=== PATIENT | female | born 1975 | race Caucasian/White ===

== ENCOUNTER 2024-10-19 06:42 | Day surgery (SDC) | payer OTHER ==
[2024-10-13 15:28] VITALS: BP 125/78
[~2024-10-19] VITALS: Ht 167.6 cm; Wt 103.0 kg
[~2024-10-19 06:42] MED LIST: ACETAMINOPHEN500 MG PO; DAILY MULTIVIT1 EAC3 PO; ESTRADIOL2 MG PO; HYDROCODON-ACE1 EA10 PO; IBUPROFEN600 MG PO; IBUPROFEN800 MG PO; LACTATED RINGER'S 1,000 ML IV SCH; MULTI VITAMIN1 EACH PO; OXYBUTYNIN CHLO15 MG PO; OXYCODON-ACETA1 EAC2 PO; PROPRANOLOL HCL20 MG PO; PROZAC20 MG PO; SENNA PLUS TAB1 EACH PO; SUMATRIPTAN SUC50 MG PO
[2024-10-19 07:00] VITALS: BP 111/72
[2024-10-19] MEDS ORDERED: BOTULINUM TOXIN TYPE A 100 UNITS VIAL IM ONE ×2 (07:00→09:15)
[2024-10-19] MEDS ORDERED: LIDOCAINE HCL 1% 5 ML SDV INJ ONE (07:00)
[2024-10-19] MEDS ORDERED: CEFAZOLIN SODIUM 2 GM/20 ML SYR IV SCH (07:00)
[2024-10-19] MEDS ORDERED: IBLOOD GLUCOSE TEST STRIP 1 EA TEST VI PRN ×2 (07:00→09:15)
--- NOTE | 2024-10-19 07:09 | NUR ---
JAGDISH WAITING WITH PT. PT COMFORTABLE.
--- NOTE | 2024-10-19 07:57 | NUR ---
up to br. returned and scds on again. iv patent
[2024-10-19] MEDS ORDERED: TRAMADOL HCL 50 MG TAB PO PRN (08:00)
[2024-10-19] MEDS ORDERED: OXYCODONE/APAP 5/325 TAB PO PRN (08:00)
[2024-10-19] MEDS ORDERED: HYDROmorphone HCL 1 MG/ML SYR IV PRN (08:00)
[2024-10-19] MEDS ORDERED: KETOROLAC TROMETHAMINE 15 MG/ML VIAL IV PRN (08:00)
[2024-10-19] MEDS ORDERED: ondansetron HCL 4 MG/2 ML VIAL IV PRN ×2 (08:00→09:15)
[2024-10-19] MEDS ORDERED: fentaNYL citrate 100 MCG/2 ML VIAL ONE (08:15)
[2024-10-19] MEDS ORDERED: propofoL 200 MG/20 ML VIAL ONE ×2 (08:15→09:56)
[2024-10-19] MEDS ORDERED: ACETAMINOPHEN 1,000 MG/100 ML VIAL ONE (08:15)
[2024-10-19] MEDS ORDERED: ondansetron HCL 4 MG/2 ML VIAL ONE (08:15)
[2024-10-19] MEDS ORDERED: LIDOCAINE HCL 2% 5 ML SDV ONE (08:15)
--- NOTE | 2024-10-19 08:56 | NUR ---
DENIES NEED TO USE BR.
[2024-10-19] MEDS ORDERED: PROCHLORPERAZINE EDISYLATE 10 MG/2 ML VIAL IV PRN (09:15)
[2024-10-19] MEDS ORDERED: fentaNYL citrate 50 MCG/ML SDV IV PRN (09:15)
[2024-10-19] MEDS ORDERED: NALOXONE HCL 0.4 MG SYR IV PRN (09:15)
[2024-10-19] MEDS ORDERED: droPERidol 5 MG/2 ML VIAL IV PRN (09:15)
[2024-10-19] MEDS ORDERED: KETOROLAC TROMETHAMINE 30 MG/ML VIAL ONE (09:16)
[2024-10-19] MEDS ORDERED: DEXAMETHASONE SOD PHOS 4 MG/ML VIAL ONE (09:45)
--- NOTE | 2024-10-19 10:39 | NUR ---
10/19/24 1039 Tenisha Parada 1026-PT ARRIVES TO PACU RESTING SEMI FOWLERS, PT NOT RESPONSIVE TO TACTILE STIMULI. VSS ON 6L VIA MASK, RR EVEN AND UNLABORED. 1030-PT RESPONSIVE TO VERBAL STIMULI BUT REMAINS ASLEEP, VSS ON 6L VIA MASK. 1035-PT AWAKENS TO VOICE, DENIES PAIN OR NAUSEA, PT TITRATED TO RA, VS REMAIN STABLE.
[2024-10-19 10:51] VITALS: BP 116/70
== END 2024-10-19 11:00 | disposition home or self-care (01) ==
LOC: OPS 06:42 → DS 06:42 → OPS 09:15 → DS 10:05 → OPS 10:05
PROVIDERS: ATTEND Urology
PROC: 3E0K8GC Introduction of Other Therapeutic Substance into Genitourinary Tract, Via Natural or Artificial Opening Endoscopic (ICD-10-PCS; principal; 2024-10-19 09:15)
DX: N39.46 Mixed incontinence (principal); N32.81 Overactive bladder; N36.42 Intrinsic sphincter deficiency (ISD); Z90.49 Acquired absence of other specified parts of digestive tract; Z90.710 Acquired absence of both cervix and uterus
CPT/HCPCS: 00910; J0131; J0585; J0690; J1100; J1885; J2003; J2405; J2704; J3010; J7121; L8606

== ENCOUNTER → 2025-02-25 | Day surgery (SDC) | payer OTHER ==
[~2025-02-25] MED LIST changes: +BOTULINUM TOXIN TYPE A 100 UNITS VIAL IM SCH; +CYCLOBENZAPRINE5 MG PO; -LACTATED RINGER'S 1,000 ML IV SCH; +LIDOCAINE 2% VISCOUS 11 ML SYR ONE; +LIDOCAINE HCL 4% 50 ML BTL TOP SCH; +PHENTERMINE H37.5 M1 PO; +SODIUM CHLORIDE 0.9% 20 ML IV ONE
--- NOTE | 2025-02-25 09:45 | NUR ---
0848: 16 FR BECKFORD CATH PLACED USING STERILE TECHNIQUE. URINE SEEN DRAINING IN TO BECKFORD TUBING. BALLOON FILLED WITH 10 ML OF STERILE WATER. PATIENT TOLERATED BECKFORD PLACEMENT WELL. 0853: AFTER URINE DONE DRAINING. BECKFORD CLAMPED. THEN BLADDER INSTILLED WITH 100 ML OF 4% LIDOCAINE. BECKFORD CLAMPED AGAIN. PATIENT TOLERATED LIDOCAINE INSTILLATION WELL. 0942: LIDOCAINE DRAINED FROM BLADDER. BECKFORD CATH DC'D. PATIENT TOLERATED BECKFORD DC WELL.
--- NOTE | 2025-02-25 10:26 | NUR ---
LE 1020: PT IS DC'D HOME AMBULATORY.
== END ==
LOC: OPS 08:12 → DS 08:12 → OPS 09:15 → DS 09:15
PROVIDERS: ATTEND Urology
PROC: 3E0K8GC Introduction of Other Therapeutic Substance into Genitourinary Tract, Via Natural or Artificial Opening Endoscopic (ICD-10-PCS; principal; 2025-02-25 09:15)
DX: N32.81 Overactive bladder (principal); N30.90 Cystitis, unspecified without hematuria; N39.3 Stress incontinence (female) (male); E66.9 Obesity, unspecified; Z68.36 Body mass index [BMI] 36.0-36.9, adult; Z79.899 Other long term (current) drug therapy
CPT/HCPCS: 51702; C1747; J0585; J3490